=== PATIENT | male | born 1995 | race Caucasian/White ===

== ENCOUNTER 2020-02-13 20:13 | Emergency (ER) | payer OTHER ==
[~2020-02-13] VITALS: Ht 180.3 cm; Wt 112.0 kg
[2020-02-13 20:26] VITALS: Ht 180.3 cm; Wt 112.0 kg
[2020-02-13 21:41] VITALS: BP 124/67
== END 2020-02-13 21:41 | disposition home or self-care (01) ==
LOC: ED 20:13
DX: S82.831A Other fracture of upper and lower end of right fibula, initial encounter for closed fracture (principal); W23.0XXA Caught, crushed, jammed, or pinched between moving objects, initial encounter; Y93.89 Activity, other specified; Y92.89 Other specified places as the place of occurrence of the external cause; Y99.8 Other external cause status
CPT/HCPCS: Q0092